=== PATIENT | male | born 1975 | race Hispanic/Latino ===

== ENCOUNTER 2022-03-29 03:25 | Emergency (ER) | payer OTHER ==
[~2022-03-29] VITALS: Ht 162.6 cm; Wt 74.8 kg
[2022-03-29] MEDS ORDERED: DIPH,PERTUSS(ACELL),TET VAC/PF 0.5 ML VIAL IM ONE (04:00)
[2022-03-29] MEDS ORDERED: TETANUS/DIPHTHERIA TOXOID [ADULT] 0.5 ML VIAL IM ONE (04:12)
[2022-03-29] MEDS ORDERED: OCTYL 2-CYANOACRYLATE 1 EACH TP SCH (04:30)
[2022-03-29 06:27] VITALS: BP 135/78
== END 2022-03-29 07:08 | disposition home or self-care (01) ==
LOC: EDH 03:25
DX: S01.01XA Laceration without foreign body of scalp, initial encounter (principal); W25.XXXA Contact with sharp glass, initial encounter; Y93.89 Activity, other specified; Y92.89 Other specified places as the place of occurrence of the external cause; Y99.8 Other external cause status
CPT/HCPCS: 12001; 70450; 90471; 90714; 90715